=== PATIENT | female | born 1990 | race Caucasian/White ===

== ENCOUNTER 2016-08-24 14:37 | Emergency (ER) | payer OTHER ==
[~2016-08-24] VITALS: Ht 157.5 cm; Wt 48.5 kg
[2016-08-24 14:47] VITALS: BP 114/60; PULSE 62; RESP 18; TEMP 98; O2SAT 100
[2016-08-24] MEDS ORDERED: METO25TA3 PO (14:54)
--- NOTE | 2016-08-24 14:58 | PD ---
HPI Chief Complaint: Chest Pain Time Seen by Provider: 14:47 Travel History International Travel<30 days: No Contact w/Intl Traveler<30days: No Traveled to known affect area: No History of Present Illness HPI This is a 26-year-old female who presents to the emergency department with a history of long QT syndrome who presents to the emergency department with left- sided chest discomfort. She describes it as a heaviness in the left chest, 3-4 out of 10, achy, nonradiating with no associated shortness of breath. The patient just saw Dr. Betancourt yesterday and was started on metoprolol for sinus tachycardia that was picked up on a Holter monitor. She had been having episodes of palpitations. She came into the emergency department today to make sure that her heart rate was not a control and she was concerned that this might be a side effect of her medication. She has no family history of heart disease and is otherwise healthy and doesn't smoke or use drugs. She admits that she is a little bit anxious and she says that she is a student at [employer] so she is in a high stress environment. [facility] Past Medical History Cardiovascular Problems: Yes ("LONG Q-T SYNDROME" & SINUS TACH) Influenza Vaccination: No ?: Unknown Past Surgical History Oral Surgery: Yes (WISDOM TEETH) Tonsillectomy: Yes Social History Alcohol Use: Yes (COUPLE TIMES PER WEEK) Tobacco Use: No Substance Use: No Allergies-Medications (Allergen,Severity, Reaction): Coded Allergies: [place] (Verified Allergy, Severe, HIVES, 08/24/16) [place] (Verified Allergy, Severe, HIVES, 08/24/16) [place] (Verified Allergy, Severe, HIVES, 08/24/16) [place] (Verified Allergy, Severe, HIVES, 08/24/16) Review of Systems Except as stated in HPI: all other systems reviewed are Neg Physical Exam Narrative GENERAL:Well appearing, no acute distress SKIN: Focused skin assessment warm and dry. HEAD: Atraumatic. Normocephalic. EYES: Pupils equal and round. No injection or drainage. ENT: Moist mucous membranes NECK: Trachea midline. CARDIOVASCULAR: Regular rate and rhythm. No murmur appreciated. RESPIRATORY: Clear to auscultation. Breath sounds equal bilaterally. GASTROINTESTINAL: Abdomen soft, non-tender, nondistended. MUSCULOSKELETAL: No obvious deformities. NEUROLOGICAL: Awake and alert. No obvious cranial nerve deficits. Moving all extremities. PSYCHIATRIC: Anxious appearing with some pressured speech. Data Data Last Documented VS Vital Signs Date Time Temp Pulse Resp B/P Pulse Ox O2 Delivery O2 Flow Rate FiO2 08/24/16 14:47 98.0 62 18 114/60 100 MDM Medical Decision Making Medical Screen Exam Complete: Yes Emergency Medical Condition: Yes Interpretation(s) Afebrile, no tachycardia, normotensive Differential Diagnosis Arrhythmia, anxiety, acute coronary syndrome, pulmonary embolism Narrative Course This is a 26-year-old female who presents to the emergency department having had chest discomfort today after starting metoprolol for sinus tachycardia. She is placed in a monitor. EKG was reassuring with a normal QT interval and a normal heart rate. I suspect the patient's symptoms are related to anxiety. I did discuss this with her. I encouraged her to continue the metoprolol for one week and see if she continues to have side effects. I don't think any further diagnostics are warranted. Patient will be discharged home. Diagnosis Primary Impression: Atypical chest pain Patient Instructions: General Instructions Additional Instructions: If you develop severe chest pain, shortness of breath, sweating, lightheadedness , dizziness or difficulty breathing return to the emergency department immediately. Followup with your primary care physician in 2-3 days if your symptoms are not resolved. Med/Other Pt SpecificInfo: No Change to Meds Disposition: 01 DISCHARGE HOME Condition: Stable Daisha Padilla MD Aug 24, 2016 14:58
--- NOTE | 2016-08-24 18:28 | EKG ---
Date Performed: 08/24/2016 Time Performed: 14:42:38 PTAGE: 26 years EKG: Sinus arrhythmia Poor R wave progression - probable normal variant Low QRS voltages in prec ordial leads Borderline ECG NO PREVIOUS TRACING DOCTOR: Seamus Black Interpretating Date/Time 08/24/2016 18:26:48
== END 2016-08-24 15:35 | disposition home or self-care (01) ==
LOC: PHED 14:37
DX: R07.89 Other chest pain (principal); R00.2 Palpitations; R94.31 Abnormal electrocardiogram [ECG] [EKG]; I45.81 Long QT syndrome
CPT/HCPCS: 93005; 99283